=== PATIENT | female | born 1970 | race Caucasian/White ===

== ENCOUNTER → 2016-05-16 | Outpatient (CLI) | payer OTHER ==
[~2016-05-16] MED LIST: ASPIR-LOW81 MG PO; PRENATAL VITAMI1 TA5 PO; [UNRECOGNIZED DRUG - OTHER]
== END ==
LOC: MC.RAD 07:20
DX: Z12.31 Encounter for screening mammogram for malignant neoplasm of breast (principal)

== ENCOUNTER → 2017-05-25 | Outpatient (CLI) | payer OTHER | LOC: MC.RAD 13:50 | DX: Z12.31 Encounter for screening mammogram for malignant neoplasm of breast (principal) ==

== ENCOUNTER → 2018-06-21 | Outpatient (CLI) | payer OTHER | LOC: MC.RAD 06-18 09:45 | DX: Z12.31 Encounter for screening mammogram for malignant neoplasm of breast (principal) ==

== ENCOUNTER → 2019-08-02 | Outpatient (CLI) | payer OTHER | LOC: MC.RAD 07-01 08:15 | DX: Z12.31 Encounter for screening mammogram for malignant neoplasm of breast (principal) ==

== ENCOUNTER → 2020-08-03 | Outpatient (CLI) | payer OTHER | LOC: MC.RAD 09:30 | DX: Z12.31 Encounter for screening mammogram for malignant neoplasm of breast (principal) ==

== ENCOUNTER → 2021-08-09 | Outpatient (CLI) | payer OTHER | LOC: MC.RAD 08:30 | DX: Z12.31 Encounter for screening mammogram for malignant neoplasm of breast (principal) ==

== ENCOUNTER 2022-05-16 07:53 | Day surgery (SDC) | payer OTHER ==
[~2022-05-16] VITALS: Ht 177.8 cm; Wt 76.8 kg
[2022-05-16] MEDS ORDERED: ZYRTEC 10MG10 MG PO (08:39)
[2022-05-16] MEDS ORDERED: CALCIUM 600 MG1 EAC2 PO (08:40)
[2022-05-16 09:07] VITALS: BP 100/73; PULSE 79; TEMP 97.8
[2022-05-16 09:20] VITALS: BP 92/64; PULSE 68; TEMP 97.8
[2022-05-16 09:35] VITALS: BP 98/76; PULSE 68
[2022-05-16 09:50] VITALS: BP 96/61; PULSE 60
--- NOTE | 2022-05-16 10:00 | NUR ---
0920 RETURNS TO ROOM 3 PER CART. AWAKE, ALERT. RESP UNLABORED. AMBULATES TO RECLINER WITH STANDBY ASSIST. DENIES NAUSEA OR ABD PAIN. VITAL SIGNS OBTAINED. CALL LIGHT AT SIDE. IN ROOM. 35 T[address] PO JUICE WITHOUT NAUSEA 0937 DISCHARGE INSTRUCTIONS REVIEWED. PATIENT VERBALIZES UNDERSTANDING. COPY PROVIDED IN DISCHARGE FOLDER. [id number] DR. ALLEN HERE TO VISIT WITH PATIENT. [id number] PATIENT DRESSES SELF
== END 2022-05-16 10:00 ==
LOC: SDCO 07:53
DX: Z12.11 Encounter for screening for malignant neoplasm of colon (principal); K62.89 Other specified diseases of anus and rectum
CPT/HCPCS: J2704; J3010

== ENCOUNTER → 2022-09-19 | Outpatient (CLI) | payer BC ==
[~2022-09-19] MED LIST changes: +CALCIUM 600 MG1 EAC2 PO; +ZYRTEC 10MG10 MG PO
== END ==
LOC: MC.RAD 08:41
DX: Z12.31 Encounter for screening mammogram for malignant neoplasm of breast (principal); N63.10 Unspecified lump in the right breast, unspecified quadrant

== ENCOUNTER → 2023-09-25 | Outpatient (CLI) | payer BC | LOC: MC.RAD 07:58 | DX: Z12.31 Encounter for screening mammogram for malignant neoplasm of breast (principal); N63.20 Unspecified lump in the left breast, unspecified quadrant ==